=== PATIENT | female | born 1955 | race Caucasian/White ===

== ENCOUNTER 2024-10-25 12:34 | Outpatient (AMB) | payer MEDICARE, OTHER, SELFPAY ==
[2024-10-25 12:56] VITALS: BMI 28.9
--- NOTE | 2024-10-25 12:56 | A.SPINEOV_ITS ---
Vital Signs 10/25/24 12:56 Height 5 ft 8 in Weight 190 lb BMI 28.9 Intake Visit Reasons: Back pain Intake Note: Ms. Bautista is here today c/o low back pain that radiates to her buttocks. Chief Operations Officer Required: No Allergies amoxicillin Allergy (Unknown, Verified 10/25/24 12:57) Unknown Physical Exam Vital Signs: BMI result Body Mass Index 28.9 Assessment & Plan Assessment & Plan (1) Other intervertebral disc degeneration, lumbar region with discogenic back pain only: Code(s): M51.360 - Other intervertebral disc degeneration, lumbar region with discogenic back pain only Category: Medical Plan Dear colleague On 10/25/2024, Celestino Yamilka Bautista, a self-referred patient, with a chief complaint of chronic low back pain. 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 The pain is constant in the lumbar sacral area. Sometimes it radiates to her posterior thighs but it does not go below the knees. She denies weakness or numbness. She has good days and bad days. The pain can be as high as 8/10. Meloxicam and chiropractic therapy temporarily alleviate the symptoms. She likes to travel a lot and the pain interacts with her daily activities. PMH: Hypertension, arthritis Medications: Doxepin, omeprazole, amlodipine, rosuvastatin, vitamin-D and calcium Allergies: Amoxicillin Social history: Retired. Nonsmoker Physical Exam: Pleasant female. Today she has a good day. There is mild pain on palpation over the lumbosacral area. Straight leg raise is negative. No deficits for motor sensation or reflexes. Radiological Studies: MRI done at [facility] on 02/23/2024 shows severe degenerative disc disease L5-S1 with Modic changes. The remainder of the disc are off a relatively good quality. There is also mild spinal stenosis at L3-4 and L4-5. Impression/Plan: This patient is possibly suffering from discogenic back pain due to severe degenerative disc disease L5-S1. She tried all forms of conservative treatment. She is looking for permanent solution. The last option would be to perform an L5-S1 lumbar fusion. I explained to her that this has a 65% chance of reducing her symptoms. I advised him not to undergo a lumbar fusion as of yet but to try the INTRACEPT procedure during which the base of vertebral nerve is ablated with radiofrequency. I will refer her to our pain management team for consult. She will update me on the outcome. Thank you for allowing me to participate in your patients care. total time spent was 50 minutes in counseling ,coordination of plan, personal review of imaging, surgical decision making and subsequent plan Albino Ramos MD, PhD Spine Fellowship Trained Neurosurgeon Director, [facility] Orders: Referrals Pain Management Referral M51.360 - Other intervertebral disc degeneration, lumbar region with discogenic back pain only Coding Level of Care Code New Pt Level 4 (53006) Diagnoses Other intervertebral disc degeneration, lumbar region with discogenic back pain only M51.360
== END 2024-10-25 14:33 | disposition home or self-care (01) ==
PROVIDERS: PCP Internal Medicine; Visit Provider Neurological Surgery
DX: M51.360 Other intervertebral disc degeneration, lumbar region with discogenic back pain only (principal)
CPT/HCPCS: 99204

== ENCOUNTER → 2024-10-25 12:34 | Outpatient (BNVA) | payer MEDICARE, OTHER, SELFPAY | PROVIDERS: PCP Internal Medicine; Visit Provider Neurological Surgery | DX: M51.360 Other intervertebral disc degeneration, lumbar region with discogenic back pain only (principal) | CPT/HCPCS: 99202 ==

== ENCOUNTER 2024-11-29 11:12 | Outpatient (AMB) | payer MEDICARE, OTHER, SELFPAY ==
--- NOTE | 2024-11-29 11:31 | MHC.OFFVIS ---
Vital Signs 11/29/24 11:33 Height 5 ft 8 in Weight 196 lb BMI 29.8 BP 130/76 Blood Pressure Location Rt brachial Position Sitting Respiration 16 Pulse 83 Pulse Source Pulse Oximeter Pulse Oximetry (%) 96 Oxygen Delivery Method Room Air Intake Visit Reasons: Other intervertebral disc degeneration Embedded Firmware Developer Required: No Allergies amoxicillin Allergy (Unknown, Verified 11/29/24 11:36) Unknown Medication List - Last Reconciled 11/29/24 by Angela Acosta LPN amlodipine 5 mg PO DAILY doxepin 6 mg PO BEDTIME ergocalciferol (vitamin D2) 1,250 mcg PO QWEEK meloxicam 7.5 mg PO DAILY omeprazole 20 mg PO DAILY rosuvastatin 10 mg PO DAILY HPI HPI Other intervertebral disc degeneration: Details: History of Present Illness The patient is a 69-year-old female presenting with chronic axial low back pain, described as a dull ache and worsening over the past two years. The pain originates in the middle of the lower back and reaches a severity of 10/10 after usual daily activities, decreasing overnight to 5/10. Movement aggravates her symptoms, while oral analgesics such as meloxicam and Aleve provide moderate relief. She has extensive degeneration at the L5-S1 and L4-5 discs without significant nerve compression but with structural compromise observed via MRI. The patient reports bilateral knee and ankle pain due to osteoarthritis, additionally hindered by a history of Achilles tendinitis. Her condition has been resistant to long-lasting improvement despite multiple interventions including physical therapy, patient care nursing assistant, and TENS therapy. The patient has a detailed understanding of her disabilities affecting her daily function, notably the impact of pain on sleep and normal activities. Pain Description - Onset: Several years ago, worsening significantly in the past 2 years. - Quality and Character: Dull ache. - Primary Location: Middle of the lower back. - Severity: 10/10 after usual daily activities, 5/10 in the morning. - Exacerbating Factors: Movement. - Relieving Factors: Oral medications (meloxicam, Aleve). - Impact: Interferes with sleep and functional capacity. - Additional Pain: Bilateral knee and ankle pain due to osteoarthritis. - Previous Interventions: Physical therapy, chiropractic manipulation, manual decompression, TENS therapy, massage therapy. Physical Exam - Axial Skeleton- Forward flexion causes tightness and pain. - Axial Skeleton- Backward flexion is less painful with notable tightness. - Lateral movement- Some discomfort noted. - Spinal Examination- Imaging indicates significant degeneration at L5-S1 and L4-5 discs. Results - MRI results indicate significant degeneration at L5-S1 and L4-5 levels, but without nerve compression. Pain Management - Affect: Pain notably impacts sleep and daily function. - Analgesia: Current use of meloxicam; Aleve reported as more effective; pain level recorded at 10/10 after activities, 5/10 in morning. - Adverse Effects: Meloxicam causes stomach upset; no adverse effects from Aleve noted. - Activities of Daily Living: Pain limits sleep and normal functioning; primary goal is to reduce pain and improve daily activities. - Aberrant Drug Related Behaviors: None reported. Physical Exam Vital Signs: Last Vital Signs Pulse 83 11/29/24 11:33 Resp 16 11/29/24 11:33 BP 130/76 11/29/24 11:33 Pulse Ox 96 11/29/24 11:33 Oxygen Delivery Method Room Air 11/29/24 11:33 BMI result Body Mass Index 29.8 Results Reviewed Results Reviewed: PROCEDURE: MR SPINE LUMBAR without CONTRAST INDICATION: Lumbar back pain with radiculopathy affecting the left lower extremity. Additional History: Squamous cell carcinoma. Hypertension. TECHNIQUE: Unenhanced multiplanar, multisequence MR imaging of the lumbar spine. COMPARISON: None Available. FINDINGS: Normal alignment of the lumbar vertebral bodies. The vertebral bodies are of normal height and signal intensity. Mild loss of intervertebral disc space height with endplate irregularity L4-L5. Loss of intervertebral disc space height with endplate irregularity marginal osteophyte formation L5-S1. Remaining intervertebral disc spaces are maintained. Lumbar facet arthrosis. Conus and cauda equina of normal appearance. The conus tip L1-L2. No acute paraspinal abnormality identified. Examination through the L1-L2 and L2-L3 intervertebral levels without central stenosis or foraminal narrowing. Examination through the L3-L4 intervertebral level revealing facet arthrosis. Prominence of ligamentum flavum. Small posterior disc osteophyte with a slight rightward predominance. There is a mild to moderate central stenosis. Bilateral lateral recess encroachment, RIGHT greater than LEFT. No significant LEFT foraminal narrowing. Mild RIGHT foraminal narrowing. Examination through the L4-L5 intervertebral level revealing facet arthrosis. Hypertrophic changes of the facets. Posterior disc osteophyte. There is a small superimposed 2 mm x 8 mm central disc protrusion. Moderate central stenosis. Bilateral lateral recess encroachment. Mild bilateral foraminal narrowing. Examination through the L5-S1 intervertebral level revealing facet arthrosis. Posterior disc osteophyte with a leftward predominance. There is no significant central stenosis. Bilateral lateral recess encroachment, LEFT greater than RIGHT. Moderate to severe LEFT foraminal narrowing. Mild to moderate RIGHT foraminal narrowing. IMPRESSION: Lumbar spondylotic changes and facet arthrosis. No findings of fracture or listhesis. Varying degrees of relative chronic appearing central stenosis and foraminal narrowing as detailed above. Note made of a small central disc protrusion at the level of L4-L5 mildly contributing to the central stenosis and foraminal narrowing as detailed above. No priors are available for comparison. The exact age of the disc material L4-L5 uncertain. No additional findings to suggest an acute lumbar process. Assessment & Plan Assessment & Plan (1) Vertebrogenic low back pain: Code(s): M54.51 - Vertebrogenic low back pain Category: Medical Plan Plan Patient was informed and verbally consented to the use of an ambient scribe for clinic note documentation during this visit. 1. Axial Vertebrogenic Low Back Pain Her condition correlates with L5-S1 and L4-5 disc degeneration with vertebral endplate Modic changes. The Intracept procedure was proposed, explaining risks and benefits. Consider action post-travel. 2. Degenerative Disc Disease Monitor condition, emphasize strengthening and proper spinal mechanics in daily activities. Potential surgical intervention if discs collapse further. 3. Achilles Tendinitis Conservative strategies recommended; pursue non-invasive approaches until back pain management provides clarity on total lower body functionality. 4. Osteoarthritis Of The Knees And Ankles Continue with current approaches, focus on joint conservation and additional therapeutic exercises to alleviate symptoms. Discussion Notes I discussed in detail the patient's current issues with axial low back pain due to degenerative disc disease a/w vertebral endplate degeneration and modic changes at the L5-S1 and L4-5 levels. The basivertebral nerve ablation procedure was proposed as a potential solution, explaining the mechanics and the non-invasive nature of the intervention. The expected success rate was discussed, along with recovery expectations. I stressed that this does not address the mechanical issues but targets pain relief. We also emphasized the importance of core exercises, good posture, and swimming as therapeutic coping mechanisms. The benefits of these measures over time could potentially delay or prevent the need for surgery. We agreed that the Intracept procedure would be reconsidered after her upcoming trip to [place], and I provided educational materials for her review. Patient Instructions - Continue existing medications but monitor and report side effects. - Consider swimming and aquatic activities to alleviate back pressure. - Practice good posture and proper lifting techniques daily. - Follow up on the basivertebral nerve ablation procedure after return from [place]. - Monitor pain progression and maintain a diary of pain levels and triggers. - Seek medical attention if pain significantly worsens or new symptoms develop. Coding Level of Care Code New Pt Level 4 (35231) Diagnoses Vertebrogenic low back pain M54.51
[2024-11-29 11:33] VITALS: BP 130/76; PULSE 83; RESP 16; O2SAT 96; BMI 29.8
--- OUTSIDE RECORDS SUMMARY | 2024-11-29 12:22 | XMS_ITS | Data Portability ---
Author Organization [place] - [facility], ERENDIRA [facility] Address [address] [address] Care Team Providers Care Trimming Caser Name Role Phone MECHE KIM Primary Care Provider [phone] Assessment Encounter Date Assessment Date Assessment LastModified by Organization Details LastModified Time 06/09/2022 06/09/2022 Impression: Chronic, insertional Achilles tendinopathy, worse on the right but calcific on the left. Plan: Reviewed findings at length with the patient. Reassured her that there is no bone spur to resect surgically. I am going to recommend a course of physical therapy to work on improving the quality of the tendon at its insertion site. She will follow-up after completing physical therapy. We did review potential benefit of ESWT if symptoms persist. The visit was 30 minutes in length and included review of the medical record before the encounter, aoej-yw-[id number] time, communicating care to other family members or providers when necessary, ordering tests/studies when necessary, and documenting the visit in the medical record. Review of prior internal and external notes were performed, as well as review of prior test results and studies performed, when available. Not available 06/09/2022 17:15:15 08/18/2022 08/18/2022 Impression: Bilateral insertional Achilles tendinopathy right greater than left, calcific on the left. Plan: Reviewed findings with the patient. She has done the right things to this point time but still experiences limiting symptoms. She is a good candidate for ESWT. Reviewed the procedure as well as recovery time and success/failure rates. I be happy to provide this for her but they do come in from [facility]. I gave her the name of a provider in [facility] that may be able to do this for her. She will follow-up with me on an as-needed basis. The visit was 20 minutes in length and included review of the medical record before the encounter, [id number]-vu-[id number] time, communicating care to other family members or providers when necessary, ordering tests/studies when necessary, and documenting the visit in the medical record. Review of prior internal and external notes were performed, as well as review of prior test results and studies performed, when available. [email or web address] Not available 08/18/2022 11:31:59 Plan of Treatment Reminders Order Date Submit Date Provider Last Modified By Organization Details Last Modified Time Details Appointments None recorded. Lab None recorded. Referral physical therapist referral - Decrease pain/infla mmation; increase strength; increase flexibilit y; DTM/STM as tolerated 2021 022 [email or web address] Not available 2 16:30:59 Procedures None recorded. Surgeries None recorded. Imaging XR, knee, 3 view [email or web address], [address], 4 15:46:50 XR, calcaneus, 2 or more view 2021 [email or web address], [address], 2 08:32:46 XR, knee, 3 view 2021 [email or web address], [address], 2 14:32:39 Medication Orders None recorded. Patient TargetsNo targets recorded. Patient Instructions Encounter Date Encounter Id Patient Instructions Last Modified By Organization Details Last Modified Time 05/30/2022 [id number] Ms. Bautista has had issues with her left knee, for the most part, the past several months. On her exam today, both knees displayed excellent range of motion, strength and stability. She had some mild discomfort palpation along the medial joint line of the left knee. Otherwise, her exam of each knee was essentially the same. X-rays showed arthritic changes more predominant on the right side than the left side. I discussed the x-ray findings and clinical findings with her. I suspect that she probably had degenerative medial meniscus tear given the minimal arthritic changes on the x-ray but the sharp pain that she experiences when she catches her knee in the wrong position. Currently, she has no real reproducible pain, even with Jairon's test. Therefore, we did discuss going ahead with conservative care. I think she is fine to continue to use her Celebrex as needed. She should ice down her knee as well. She can use Tylenol if necessary. If she happens to have an increase in her discomfort or starts to have more significant mechanical type symptoms, we could consider an MRI to further evaluate her knee. We could also consider cortisone injection. She will give this some thought and how her knee feels will, determine her next step, if necessary in her care. Otherwise, she will follow-up with me as needed will call with any questions. 20 minutes were spent reviewing the imaging and the stom-gh-dzdd encounter. [email or web address] Not available 05/30/2022 13:03:49 Reason for Referral Physical Therapist Referral for Achilles tendinitis Decrease pain/inflammation; increase strength; increase flexibility; DTM/STM as tolerated Referring Physician: Keara Gutierrez, Podiatry, Encounter Date: 06/09/2022 Results Created Date Observation Date Name Description Value Unit Range Abnormal Flag Note LastModifiedBy Organization Detail LastModifiedTime 05/02/2004/21/2022 XR, knee, 4 or more view No observ ation record ed. [facility] [address] [place], [address], 05/04/2022 09:30:36 05/30/20 XR, knee No observ ation record ed. [email or web address] [address], [place], [address] 05/30/2022 10:26:11 05/30/20 XR, knee, 3 view No observ ation record ed. [email or web address], [address], 05/30/2022 10:25:14 09/01/20 22 heel bilat No observ ation record ed. [email or web address] [address], [place], [address] 06/10/2022 08:32:53 06/09/20 22 XR, calca neus, 2 or more view No observ ation record ed. [email or web address] Erendira John [address] [place], [address], 06/09/2022 16:32:15 02/12/20 24 XR, knee, 3 view No observ ation record ed. [email or web address] [facility] [address] [place], [address], 02/12/2024 15:46:47 02/12/20 24 XR, knee No observ ation record ed. [email or web address] [address], [place], [address] 02/12/2024 14:03:36 Result Notes None recorded. Problems Name Problem SNOMED Code Status Onset Date Resolution Date Notes Provider Name and Address Organization Details Recorded Time Pain of bilateral knee joints 14075896853954 4 Active 2023 WARD ABRAMS MD [address] [place] [address], [phone], [facility] 4 20:29:25 Problem Notes None recorded. Procedures Surgical History Date Name Laterality Status Provider Name and Address Organization Details Recorded Time 4 CML Knee injection (Bilateral) completed WARD ABRAMS MD [address] [place] [address], [address], [facility] 02/12/2024 15:46:11 Other completed Zafar Barros MA [facility] 06/09/2022 16:18:32 Knee arthroscopy/alaniz rgery completed Zafar Barros MA [facility] 02/12/2024 14:28:37 Imaging Results Imaging Date Name Status [facility]Modified by [facility] Details LastModified Time 04/21/2022 XR, knee, 4 or more view completed [facility] [address] [place], [address], 05/04/2022 09:30:36 05/30/2022 XR, knee completed [email or web address] [address], [address] 05/30/2022 10:26:11 05/30/2022 XR, knee, 3 view completed [email or web address] [address], [address], 05/30/2022 10:25:14 06/09/2022 heel bilat completed [email or web address] [address], [address] 06/10/2022 08:32:53 06/09/2022 XR, calcaneus, 2 or more view completed [email or web address] [address], [address], 06/09/2022 16:32:15 02/12/2024 XR, knee, 3 view completed [email or web address] [address], [address], 02/12/2024 15:46:47 02/12/2024 XR, knee completed [email or web address] [address], [address] 02/12/2024 14:03:36 Procedure Notes None recorded. Medical Equipment None Reported. Allergies Allergen ID Allergen Name Allergen Category Reaction Reaction Severity Criticality Documentation Date Start Date Code Code System Note Provider Name and Address Organization Details Recorded Time 705601 amoxicill in medicatio n Not available Not available Not available 05/30/2022 723 RxNorm Gumaro [facility] 11:06:48 Medications Name Sig Start Date Stop Date Status Note LastModified by Organization Details LastModified Time celecoxib 200 mg capsule TAKE 1 CAPSULE BY MOUTH EVERY DAY 02/11 completed Not Available Not Available Not Available amoxicillin 500 mg capsule TAKE 1 CAPSULE BY MOUTH TWICE A DAY FOR 10 DAYS 06/08 completed Not Available Not Available Not Available prednisone 10 mg tablet TAPER DIRECTED 02/11 completed Not Available Not Available Not Available triamcinolo ne acetonide 0.5 % topical cream APPLY TO AFFECTED AREA TWICE A DAY FOR 7 DAYS active Not Available Not Available No t Available fluconazole 150 mg tablet TAKE 1 TABLET BY MOUTH EVERY DAY FOR 10 DAYS 02/11 completed Not Available Not Available Not Available pimecrolimu s 1 % topical cream Apply TO affected AREAS ON FACE TWICE A DAY FOR 4 WEEKS 02/11 completed Not Available Not Available Not Available permethrin 5 % topical cream APPLY ONCE EXTERNALL Y TWO TIMES A WEEK 14 DAYS 02/11 completed Not Available Not Available Not Available amlodipine 2.5 mg tablet TAKE 1 TABLET BY MOUTH EVERY DAY FOR 90 DAYS active Not Available Not Available No t Available triamcinolo ne acetonide 0.1 % topical cream APPLY TO AFFECTED AREAS DAILY, NO NOT USE MORE THAN 2 WEEKS IN THE SAME AREA active Not Available Not Available No t Available meloxicam 7.5 mg tablet TAKE 1 TABLET BY MOUTH EVERY DAY active Not Available Not Available No t Available lorazepam 0.5 mg tablet TAKE 3 TABLETS BY MOUTH 1HR PRIOR (2 DAY SUPPLY) active Not Available Not Available No t Available amlodipine 10 mg tablet TAKE 1 TABLET BY MOUTH EVERY DAY 06/08 completed Not Available Not Available Not Available omeprazole ER 20 mg capsule,ext ended release 1 capsule every day by oral route. 06/08 completed Not Available Not Available Not Available betamethaso ne dipropionat e 0.05 % topical cream APPLY TO AFFECTED AREA TWICE A DAY 02/11 completed Not Available Not Available Not Available omeprazole 20 mg capsule,del ayed release TAKE 1 CAPSULE BY MOUTH EVERY DAY active Not Available Not Available No t Available hydroxyzine HCl 25 mg tablet TAKE 1 TABLET BY MOUTH EVERY DAY 02/11 completed Not Available Not Available Not Available pravastatin 20 mg tablet TAKE 1 TABLET BY MOUTH EVERY DAY 02/11 completed Not Available Not Available Not Available ergocalcife rol (vitamin D2) 1,250 mcg (50,000 unit) capsule TAKE 1 CAPSULE BY MOUTH ONCE WEEKLY active Not Available Not Available No t Available methylpredn isolone 4 mg tablets in a dose pack TAKE 6 TABLETS ON DAY 1 DIRECTED ON PACKAGE AND DECREASE BY 1 TAB EACH DAY FOR A TOTAL OF 6 DAYS 06/08 completed Not Available Not Available Not Available clotrimazol e 1 % topical cream APPLY TO AFFECTED AREA TWICE A DAY FOR 7 DAYS 02/11 completed Not Available Not Available Not Available rosuvastati n 20 mg tablet TAKE 1 TABLET BY MOUTH EVERY DAY FOR 90 DAYS active Not Available Not Available No t Available GaviLyte-G 236 gram-22.74 gram-6.74 gram-5.86 gram oral solution TAKE DIRECTED active Not Available Not Available No t Available doxepin 6 mg tablet TAKE 1 TABLET BY MOUTH EVERYDAY AT BEDTIME active Not Available Not Available No t Available Paxlovid 300 mg (150 mg x 2)-100 mg tablets in a dose pack FOLLOW DIRECTION S ON PACKAGE OR PER MD 06/08 completed Not Available Not Available Not Available Vitals Date Recorded Body height Body mass index (BMI) Body weight Body temperature Pain severity - 0-10 verbal numeric rating [Score] - Reported Provider Name and Address Organization Details Last Updated DateTime 05/30/2022 172.72 cm 28.9 kg/m2 43174.55 g 97 [degF] 7 Gumaro Campos [facility] 11:06:31 Date Recorded Body height Body weight Body mass index (BMI) Pain severity - 0-10 verbal numeric rating [Score] - Reported Provider Name and Address Organization Details Last Updated DateTime 06/09/2022 172.72 cm 17242.55 g 28.9 kg/m2 10 Zafar Barros [facility] 06/09/2022 16:19:20 Date Recorded Body height Body mass index (BMI) Body weight Pain severity - 0-10 verbal numeric rating [Score] - Reported Provider Name and Address Organization Details Last Updated DateTime 08/18/2022 172.72 cm 28.9 kg/m2 33160.55 g 10 Anel Matthews [facility] 08/18/2022 10:58:49 Date Recorded Body height Body mass index (BMI) Body weight Pain severity - 0-10 verbal numeric rating [Score] - Reported Provider Name and Address Organization Details Last Updated DateTime 02/12/2024 172.72 cm 28.9 kg/m2 55232.55 g 8 Zafar Barros [facility] 02/12/2024 14:27:09 Social History Question Answer Notes LastModified by Organizat ion Details LastModified Time Tobacco Smoking Status Never Smoker Zafar valencia [place] [facility] 06/09/2022 16:18:27 What Is Your Level Of Alcohol Consumption? Occasional [email or web address] Information not available 06/09/2022 Are You Deaf Or Do You Have Serious Difficulty Hearing? Yes [email or web address] Information not available 06/09/2022 Which Illicit Or Recreational Drugs Have You Used? 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 Right [email or web address] Information not available 06/09/2022 At What Age Did You Start Smoking Tobacco? 0 Information not available 08/18/2022 How Much Tobacco Do You Smoke? No Information not available 08/18/2022 Sex: Unknown Functional Status Question Answer Note LastModified by Organizat ion Details LastModified Time What is your exercise level? Occasional Information not available 08/18/2022 Mental Status None recorded. Family History Relationship Description Onset Age of this Age Resolved Age Notes LastModified by Organization Details LastModified Time Father Family history of malignant neoplasm 65 [email or web address] Not available 2021 16:18:55 Father Arthritis 60 [email or web address] Not availabl e 06/09/2022 16:18:55 Mother Family history of malignant neoplasm 71 72 [email or web address] Not available 2021 16:18:55 Mother Family history of stroke 69 [email or web address] Not available 2021 16:18:55 Mother Heart disease 65 [email or web address] Not available 2021 16:18:55 Mother Hypertensive disorder 55 [email or web address] Not available 2021 16:18:55 Brother Arthritis 60 [email or web address] Not availab le 06/09/2022 16:18:55 Sister Hypertensive disorder 55 Not available 2021 16:18:55 Medical History Condition Response Lung Disease N Arthritis Y Acid Reflux (GERD) Y Cancer Y Stroke N Kidney Disease N Back Pain Y Diabetes N Asthma/COPD N Heart Disease N Hypertension Y Gynecological HistoryNo gynecological history recorded. Obstetrics History GPAL:G 0 P 0 0 0 0 Past Encounters Encounter ID Performer Location Encounter Start Date Encounter Closed Date Diagnosis/Indication Diagnosis SNOMED-CT Code Diagnosis ICD10 Code Diagnosis Note [id number] WARD ABRAMS MD [address] [address] 05/30/2022 10:12:53 05/30/2022 14:32:39 Pain of bilateral knee joints 1676931785 21252 M25.561 M25.562 M17.12 M17.11 [id number] KEARA GUTIERREZ [address] [address] 06/09/2022 15:51:20 06/10/2022 11:20:21 Achilles tendinitis 78288640 M76.61 M76.62 [id number] KEARA GUTIERREZ [address] [address] 08/18/2022 10:48:49 08/18/2022 11:34:57 Right Achilles tendinitis 7029856648 87975 M76.61 Left Achil les tendinitis 0398215500 42591 M76.62 [id number] WARD ABRAMS MD [address] [address] 02/12/2024 13:44:24 02/12/2024 15:08:26 Pain of bilateral knee joints 0923593838 30647 M25.561 M25.562 M17.12 M17.11 Yamilka has bilateral knee osteoarthr itis which is worsened over the course the last several months. She does see improvemen t with the meloxicam, but, it irritates her stomach. Today, her range of motion is a little bit compromise d and compared to her prior evaluation . Her x-rays confirm tricompart mental osteoarthr itis. We discussed treatment options for her knee pain and elected to go ahead with a cortisone injection. Based on today's chief complaint, ROS, history and exam and medical decision making it was decided to perform an injection to both knees. She tolerated the injections well. she does understand that 3 to 5 days to have a full effect. She will follow-up with me as needed and call with any questions. At some point in the future we may need to consider knee replacemen t surgery. 20 minutes were spent reviewing her imaging and in a face-to-fa ce encounter. Health Concerns Section Related Observation LastModified by Organization Detai ls LastModified Time None Recorded Concern Status LastModified by Organization Details LastModified Time None Recorded Advance Directives Directive None Recorded Payers Encounter Date Sequence Insurance Name Policy Number Policy Uriostegui Covered Member ID Uriostegui Member ID Guarantor Name 05/30/2022 1 MEDICARE B-[place]: [facility] Yamilka Bautista [id number] 7 Yamilka Bauitsta 05/30/2022 2 [employer] [id number] Yamilka Bautista [id number] Yamilka Bautista 06/09/2022 1 MEDICARE B-[place]: [facility] Yamilka Bautista [id number] Yamilka Bautista 06/09/2022 2 [employer] [id number] Yamilka Murphy Siok [id number] Yamilka Bautista 08/18/2022 1 MEDICARE B-[place]: [facility] Yamilka Bautista [id number] 7 Yamilka Bautista 08/18/2022 2 [employer] [id number] Yamilka Murphy Siok [id number] Yamilka Bautista 02/12/2024 1 MEDICARE B-[place]: [facility] Yamilka Bautista [id number] 7 Yamilka Bautista 02/12/2024 2 [employer] [id number] Yamilka Murphy Siok [id number] Yamilka Bautista Notes Date Note Type Note Provider Name and Address Organization Details Recorded Time 05/30/2022 text/html Ms. Bautista is a pleasant, 67-year-old woman who came to the office today for an evaluation of her knees. She has had issues, especially on her left knee, the past several years. She reports that her left knee will, on intermittent basis, give her sharp pain. She is able to perform many of her activities of daily living without any real problem with either knee. She denies having any catching, locking, or instability. However, when the sharp pain does occur, it is quite debilitating. X-rays of her knees were obtained as part of this evaluation. When present, she rates her knee pain is a 7 out of 10. Today she has minimal discomfort. She does take his Celebrex for her knee pain and various other ailments and does report that the Celebrex helps with her knee pain WARD ABRAMS MD [address] [place], [address], [facility] 05/30/2022 13:04:03 06/09/2022 text/html Yamilka is a 67-year-old female who presents requesting evaluation of chronic bilateral posterior heel pain. Symptoms on the left began approximately 6 years ago and on the right 1 to 2 years ago. Left side has remained low-grade with regard to intensity but the right side has worsened over the past year. She did receive a consult from a data collection specialist in [facility] where she resides who recommended surgery after diagnosing her with a bone spur . KEARA GUTIERREZ DPM [address], [place], , [facility] 06/09/2022 17:15:43 08/18/2022 text/html Yamilka returns af ter going through physical therapy relating only modest improvement with regard to retrocalcaneal pain, right greater than left. Relates approximately 30% overall improvement. Still limited with regard to her walking activities. KEARA GUTIERREZ DPM [address] [place], [address], [facility] 08/18/2022 11:32:13 02/12/2024 text/html Yamilka returns to the office today to follow-up on her bilateral knee pain. She was seen previously and we had discussed her arthritic knee changes and potential use of cortisone. She actually held off at that time. However, for the past several months she has had worsening bilateral knee pain. She is also experienced some issues with her back and her upper extremities. Her primary care is in the midst of working up her low back. She came in today to discuss her knee pain which she rates as an 8 out of 10. There was no particular trauma or injury that seem to aggravate her knees. She does feel that has been gradually worsening over time. WARD ABRAMS MD [address] [place], [address], [facility] 02/12/2024 20:30:05 OBGyn Episode No OBEpisode recorded.
--- OUTSIDE RECORDS SUMMARY | 2024-11-29 12:22 | XMS_ITS | Continuity of Care Document ---
Author Organization [facility] [address] [place] [address] Phone [phone] Care Team Providers Care Route Jumper Name Role Phone Tomás Moore M.D. Care Team Information Recei janeen [phone] Problems Active Problems Provider Date Non-toxic multinodular goiter Emilia kapadia M.D. Onset: 09/20/2022 Osteoporosis Emilia Oropeza M.D. Ons et: 09/20/2022 Benign paroxysmal positional vertigo Emilia Merino M.D. Onset: 09/20/2022 Essential hypertension Maritza Rosenberg Onset: 09/20/2022 Migraine Emilia Oropeza M.D. 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 Onset: 09/20/2022 Social History Type Date Description Comments Sex Unknown Lives With Alone Occupation vocal teacher Work Status Retired ETOH Use Occasionally consumes alcoho l Tobacco Use Start: Unknown Patient has never smoked Allergies and adverse reactions Active Allergies Criticality Reaction Severity Comments Date Amoxicillin Unable to assess criticality Nausea 09/20/2022 Medications Active Medications SIG Qnty Indications Ordering Provider Date [id number] Tablets 1 qd Emilia Oropeza M.D. 09/20/[id number] Take 1 capsule daily Tomás Moore M.D. Amlodipine Besylate2.5mg Tablets Take 1 tablet daily Tomás Moore M.D. Vitamin D (Ergocalciferol)1.25mg (20738 Ut) Capsules Take 1 Capsule By Mouth Once Every Other Week Tomás Moore M.D. Doxepin HCL6mg Tablets Take 1 tablet daily at bedtime as needed Tomás Moore M.D. Vitamin C500mg Chewtabs 1 by mouth every day Emilia Oropeza M.D. Fish [id number] Capsules 1 by mouth once a day Emilia Oropeza M.D. Xwpvolf9mu/100ML Solution 07/2020, 08/2021 Emilia Oropeza M.D. Magnesium Oxide (Elemental)400mg Tablets 1 by mouth once a day Emilia Oropeza M.D. Vital Signs Date Vital Result Comment 03/29/2024 1:01pm BP Systolic 122 mmHg BP Diastolic 60 mmHg Heart Rate 88 /min Height 68 inches 5'8 Weight 194.38 lb BMI (Body Mass Index) 29.6 kg/m2 Results Test Acquired Date Facility Test Result H/L Range Note N-Telopeptide, Urine 05/29/2024 [facility] N-Telopeptide 118 nmolBCE Not Estab. Creatinine, Urine 49.4 mg/dL Not Estab. N-Telo/Creat. Ratio 27 nMBCE/mMCr 0-89 Interpretive Guide: See Comment: 1 Laboratory test finding 04/02/2024 [facility] N-Telopeptide, Urine <pending> Laboratory test finding 03/29/2024 [facility] N-Telopeptide, Urine <pending> Basic Metabolic Panel 09/28/2023 [facility] Glucose 80 mg/dL (70-99) BUN 11 mg/dL (8-23) Creatinine 0.8 mg/dL (0.5-1.0 ) Sodium 143 mmol/L (133-145 ) Potassium 4.5 mmol/L (3.6-5.2 ) Chloride 105 mmol/L (98-107) Bicarbonate 29 mmol/L (22-29) Anion Gap 9 (4-17) Calcium 9.6 mg/dL (8.6-10. 5) Estimated GFR Creatinine 78 ML/MIN/1.73 M2 2 Laboratory test finding 09/28/2023 [facility] 25Oh Vitamin D 55.3 NG/ML High (20-50) Albumin 4.4 GM/DL (3.4-4.8 ) Laboratory test finding 03/22/2023 [facility] TSH With Reflex To FT4 2.98 uIU/mL (0.4-4.2 ) Laboratory test finding 11/08/2022 [facility] Albumin 4.6 GM/DL (3.4-4.8 ) Calcium 9.8 mg/dL (8.6-10. 5) Creatinine 11/08/2022 [facility] Creatinine 0.7 mg/dL (0.5-1.0 ) Estimated GFR Creatinine 90 ML/MIN/1.73 M2 3 Laboratory test finding 11/08/2022 [facility] 25Oh Vitamin D 79.8 NG/ML High (20-50) N-Telopeptide Cross Links, Urine 11/08/2022 [facility] Cross Linked N-Telopeptides 462 4 Creat, Urine 186.3 5 N-Telopeptide/C re at Ratio 28 6 NTX Interpretaion Comment 7 Laboratory test finding 09/20/2022 [facility] Calcium <pending> Albumin <pending> Creatinine <pending> 25Oh Vitamin D <pending> 1 The N-telopeptide an d Creatinine are used to calculate the N-telo/Creat. Ratio which is referred to as NTx . Suggested guidelines for the clinical use of NTx are as follows: 1. Menopausal Women not on Hormone Replacement Therapy (HRT): Women with a baseline NTx value >38 are at significant risk for a decrease in bone mineral density (BMD) after 1 year compared to women on HRT. The probability of a decline in BMD increases with NTx value as follows: (1): Baseline NTx Probability of Decrease in BMD 18- 38 1.4 p=0.28 38- 51 2.5 p=0.03 51- 67 3.8 p=0.0006 67-188 17.3 p=0.0001 2. Menopausal Women Receiving Antiresorptive Therapy: The probability that treatment is effective after three months is increased when the measured NTx value is <or=38 nM BCE/mM LEASING DIRECTOR, or NTx has decreased >or=30% from baseline.[1] 3. Patients with Paget's Disease of Bone: The probability that treatment is effective after one month is increased when the measured NTx value is within the reference range, or NTx has decreased >or=30% from baseline.[2] 1. Marco CH, Doris NH, Chris GS, et al. Am J Med, 102:29-37,1996. (1):M757, 1996. 2. Bone H, Roxann J, et al. J Bone Min Res.11(1):M757,1995 2 Creatinine based est imated glomerular filtration (eGFR) in adults is calculated using the National Kid[employer] recommended 2020 CKD-EPI equation. Estimates GFR from serum creatinine, age and sex. 3 Creatinine based est imated glomerular filtration (eGFR) in adults is calculated using the National Kidney Foundation recommended 202 CKD-EPI equation. Estimates GFR from serum creatinine, age and sex. 4 Reference range: Not Estab. Unit: nmol BCE Test performed at [facility] [address] 5 Reference range: Not Estab. Unit: mg/dL Test performed by [facility], [address] [place] [address] 6 Reference range: 0 t o 89 Unit: nM BCE/mM Cr 7 (NOTE) The N-telopeptide and Creatinine are used to calculate the N-telo/Creat. Ratio which is referred to as NTx . Suggested guidelines for the clinical use of NTx are as follows: 1. Menopausal Women not on Hormone Replacement Therapy (HRT): Women with a baseline NTx value >38 are at significant risk for a decrease in bone mineral density (BMD) after 1 year compared to women on HRT. The probability of a decline in BMD increases with NTx value as follows: (1): Baseline NTx Probability of Decrease in BMD 18- 38 1.4 p EQ 0.28 38- 51 2.5 p EQ 0.03 51- 67 3.8 p EQ 0.0006 67-188 17.3 p EQ 0.0001 2. Menopausal Women Receiving Antiresorptive Therapy: The probability that treatment is effective after three months is increased when the measured NTx value is <or EQ 38 nM BCE/mM LEASING DIRECTOR, or NTx has decreased >or EQ 30% from baseline.[1] 3. Patients with Paget's Disease of Bone: The probability that treatment is effective after one month is increased when the measured NTx value is within the reference range, or NTx has decreased >or EQ 30% from baseline.[2] 1. Marco CH, George NH, Chris GS, et al. Am J Med, 102:29-37,1997. (1):M757, 1996. 2. Bone H, Roxann Denis, et al. J Bone Min Res.11(1):M757,1995 [place] [address] Procedures Date Code Description Status 09/28/2023 24154 Collection Of Venous Blood B y Venipuncture Completed 03/22/2023 82520 Collection Of Venous Blood B y Venipuncture Completed Medical Devices Description No Information Available Encounters Type Date Location Provider Dx Diagnosis Office Visit 03/29/2024 1:00p Main Office Emilia Oropeza M.D. E04.2 Nontoxic multinodular goiter M81.0 Age-related osteopor osis w/o current pathological fracture Assessments Date Code Description Provider 03/29/2024 E04.2 Nontoxic multinodular goiter Emilia Oropeza M.D. 03/29/2024 M81.0 Age-related oste oporosis without current pathological fracture Emilia Oropeza M.D. Plan of Treatment Future Appointment(s):* 04/07/2025 1:00 pm - Emilia Oropeza M.D. at Main Office 09/20/2022 - Emilia Oropeza M.D.* M81.0 Age-related osteoporosis without current pathological fracture * E04.2 Nontoxic multinodular goiter * * New Labs:* N-Telopeptide Cross Links, Urine, Ordered: 09/20/22 * Calcium, Ordered: 09/20/22 * Albumin, Ordered: 09/20/22 * Creatinine, Ordered: 09/20/22 * 25Oh Vitamin D, Ordered: 09/20/22 Functional Status Description No Information Available Mental Status Description No Information Available Referrals Description No Information Available
--- OUTSIDE RECORDS SUMMARY | 2024-11-29 12:22 | XMS_ITS | Clinical Summary ---
Author Organization [facility] it Address [address] [place] [address] Care Team Providers Care Health Actuary Name Role Phone Tomás Moore MD Primary Care Provider [phone] Surgical History Surgery Date Site/Laterality Comments KNEE SURGERY Bilateral PROCEDURE: HISTORICAL KNEE SURGERY Medical History Medical History Date Comments Essential hypertension DX:Essent ial hypertension Arthritis DX:Arthritis Low back pain DX:Low back pain Difficulty balancing DX:Difficul ty balancing Social History Tobacco Use Types Packs/Day Years Used Date Smoking Tobacco: Never Smokeless Tobacco: Never Comments Unknown Sex and Gender Information Value Date Recorded Sex Assigned at Not on file Legal Sex Female 6:41 AM EST Gender Identity Not on file Sexual Orientation Not on file Obstetrics History Last Filed Vital Signs Vital Sign Reading Time Taken Comments Blood Pressure 154/81 10/05/2022 2:52 PM EST Sit ting Left arm Pulse 92 10/05/2022 2:52 PM EST Temperature - - Respiratory Rate - - Oxygen Saturation - - Inhaled Oxygen Concentration - - Weight 86.2 kg (190 lb) 03/12/2024 2:02 PM EDT Height 172.7 cm (5' 8 ) 03/12/2024 2:02 PM EDT Body Mass Index 28.89 03/12/2024 2:02 PM EDT Plan of Treatment Health Maintenance Due Date Last Done Comments Breast Cancer Screening 1955 Pneumococcal Vaccine: 50+ Years (2 of 2 - PCV) 08/26/2021 08/26/2020 Cholesterol Screening (Lipid Panel) 09/11/2022 Colorectal Cancer Screening: Colonoscopy 09/11/2022 Depression Screening 09/11/2022 Falls Risk Assessment 09/11/2022 Hepatitis C Screening 09/11/2022 Osteoporosis Screening (Bone Density Screening) 09/11/2022 Social Influencers of Health Screening 09/11/2022 COVID-19 Vaccine ( season) 2024 07/16/2021, 12/16/2020, 11/25/2020 Influenza Vaccine (#1) 2024 2, 08/10/2021, 07/04/2020, Additional history exists DTaP,Tdap,and Td Vaccines (2 - Td or Tdap) 03/09/2029 03/09/2019 RSV Immunization Patients 60+ Years Old (1 - 1-dose 75+ series) 2030 Zoster Vaccines Completed 11/09/2018, 09/06/2018 HIB Vaccines Aged Out No longer eligi ble based on patient's age to complete this topic HPV Vaccines Aged Out No longer eligi ble based on patient's age to complete this topic Hepatitis A Vaccines Aged Out No long er eligible based on patient's age to complete this topic Hepatitis B Vaccines Aged Out No long er eligible based on patient's age to complete this topic IPV Vaccines Aged Out No longer eligi ble based on patient's age to complete this topic MMR Vaccines Aged Out No longer eligi ble based on patient's age to complete this topic Meningococcal ACWY Vaccine Aged Out N o longer eligible based on patient's age to complete this topic Meningococcal B Vacine Aged Out No lo nger eligible based on patient's age to complete this topic RSV Immunization Patients Under 20 months Aged Out No longer eligible based on patient's age to complete this topic Varicella Vaccines Aged Out No longer eligible based on patient's age to complete this topic Care Teams Health Actuary Relationship Specialty Start Date End Date Tomás Moore MD PCP - General 08/24/22
--- OUTSIDE RECORDS SUMMARY | 2024-11-29 12:22 | XMS_ITS | Clinical Summary ---
Author Organization [facility] Address [address] [place] [address] Care Team Providers Care Examination Supervisor Name Role Phone Tomás Moore MD Primary Care Provider [phone] Allergies No known active allergies Medications Medication Sig Dispensed Refills Start Date End Date Status amLODIPine (NORVASC) tablet 2.5 mg Take 1 tablet (2.5 mg total) by mouth daily. 0 08/25/2022 Active celecoxib (CeleBREX) 200 MG capsule Take 1 capsule (200 mg total) by mouth daily. 0 07/12/2022 Active Doxepin HCl 6 MG TABS doxepin 6 mg tablet TAKE 1 TABLET BY MOUTH EVERYDAY AT BEDTIME. 0 09/13/2021 Active meloxicam (MOBIC) 7.5 MG tablet Take 1 tablet (7.5 mg total) by mouth daily. 0 07/04/2022 Active omeprazole (PriLOSEC) 20 MG capsule Take 1 capsule (20 mg total) by mouth daily. 0 08/31/2022 Active rosuvastatin (CRESTOR) tablet 20 mg Take 1 tablet (20 mg total) by mouth daily. 0 08/22/2022 Active Active Problems Problem Noted Date Diagnosed Date Elevated serum immunoglobulin free light chains 10/07/2022 Family History Medical History Relation Name Comments Cancer Father prostate Cancer Maternal Aunt pancreatic Cancer Mother Relation Name Status Comments Father Maternal Aunt Mother Social History Tobacco Use Types Packs/Day Years Used Date Smoking Tobacco: Never Smokeless Tobacco: Never Tobacco Cessation:Counseling Given: Not Answered Alcohol Use Standard Drinks/Week Comments Yes 0 (1 standard drink = 0.6 oz pur e alcohol) very rare Sex and Gender Information Value Date Recorded Sex Assigned at Not on file Gender Identity Not on file Sexual Orientation Not on file Job Start Date Occupation Industry Not on file Not on file Not on file Last Filed Vital Signs Vital Sign Reading Time Taken Comments Blood Pressure 154/81 10/05/2022 2:52 PM EST Pulse 92 10/05/2022 2:52 PM EST Temperature 37.2 ??C (99 ??F) 10/05/2022 2:52 PM EST Respiratory Rate - - Oxygen Saturation 97% 10/05/2022 2:52 PM EST Inhaled Oxygen Concentration - - Weight 89.6 kg (197 lb 9.6 oz) 10/05/2022 2:52 P M EST Height 170.2 cm (5' 7 ) 10/05/2022 2:52 PM EST Body Mass Index 30.95 10/05/2022 2:52 PM EST Plan of Treatment Health Maintenance Due Date Last Done Comments Hepatitis C Screening 1955 COVID-19 Vaccine (#1) 1955 Depression Screening 1967 Preventative Health Evaluation 1973 DTap / Tdap / Td (1 - Tdap) 1974 Colon Cancer Screening (Colonoscopy) 2000 Breast Cancer Screening (Mammogram) 2005 Shingrix-Zoster Vaccine (1 of 2) 2005 Fall Risk Assessment 2020 Osteoporosis Screening (DEXA Scan) 2020 Pneumococcal Vaccine (1 of 1 - PCV) 2020 Influenza Vaccine (#1) 2024 RSV Adult > 60+ Yrs or Pregn ant (1 - 1-dose 75+ series) 2030 Hepatitis B Vaccines Aged Out No long er eligible based on patient's age to complete this topic RSV Ped < 20 months Aged Out No longe r eligible based on patient's age to complete this topic Care Teams Examination Supervisor Relationship Specialty Start Date End Date Tomás Moore MD [address] [facility] [address] [place] [address] PCP - General Internal Medicine 08/24/22
== END 2024-11-29 12:12 | disposition home or self-care (01) ==
PROVIDERS: PCP Internal Medicine; Referring Provider Neurological Surgery; Visit Provider Internal Medicine
DX: M54.51 Vertebrogenic low back pain (principal)
CPT/HCPCS: 99204

== ENCOUNTER → 2024-11-29 11:12 | Outpatient (BNVA) | payer MEDICARE, OTHER, SELFPAY | PROVIDERS: PCP Internal Medicine; Referring Provider Neurological Surgery; Visit Provider Internal Medicine | DX: M54.51 Vertebrogenic low back pain (principal) | CPT/HCPCS: 99202 ==